=== PATIENT | female | born 1940 | race Caucasian/White ===

== ENCOUNTER 2017-03-02 13:21 | Outpatient (CLI) | payer MEDICARE ==
[2017-03-02 14:44] LABS: #Basophils 0.1 thou/uL (0.0-0.2); #Eosinphils 0.3 thou/uL (0.0-0.7); #Lymphocytes 1.7 thou/uL (1.20-3.40); #Monocytes 0.3 thou/uL (0.11-0.59); #Neutrophils 3.2 thou/uL (1.40-6.50); %Eosinophils 4.8 % (0.0-10.0); %Lymphocytes 30.1 % (21.0-51.0); %Monocytes 6.2 % (0.0-10.0); Mean Platelet Volume 8.1 fL (7.4-10.4); Red Blood Cell (RBC) Count 4.35 mill/uL (4.20-5.40); White Blood Cell (WBC) Count 5.5 thou/uL (4.8-10.8)
[2017-03-02 14:52] LABS: PTT 26.7 SEC (22.9-36.1); Prothrombin Time 14.1 SEC (12.0-14.7)
[2017-03-02 15:07] LABS: Anion Gap 12 mmol/L (10-20); BUN (Urea Nitrogen) 15 mg/dL (9.8-20.1); Calc. Creatinine Clearance 0 mL/min (70-130); Calcium 9.7 mg/dL (7.8-10.44); Carbon Dioxide 34 mmol/L (23-31); Chloride 95 mmol/L (98-107); Estimated GFR-MDRD 51
--- NOTE | 2017-03-02 15:27 | RAD ---
CHEST TWO VIEWS: History: Pre-operative. Comparison: 07-24-14 FINDINGS: Cardiac silhouette and pulmonary vasculature are unremarkable. Mediastinum is midline with post-oper ative changes of the cervical spine partially visualized. There is no confluent airspace consolidati on, pneumothorax, or pleural fluid apparent. Degenerative changes involve the thoracic spine on the lateral view. IMPRESSION: No active cardiopulmonary abnormalities are demonstrated. POS: [facility]
--- NOTE | 2017-03-03 10:01 | EKG ---
Test Reason : PREOP Blood Pressure : / mmHG Vent. Rate : 064 BPM Atrial Rate : 064 BPM P-R Int : 272 ms QRS Dur : 102 ms QT Int : 420 ms P-R-T Axes : 060 -28 036 degrees QTc Int : 433 ms Sinus rhythm with 1st degree A-V block Incomplete right bundle branch block Borderline ECG When compared with ECG of 27-APR-2015 23:44, No significant change was found Confirmed by STEPHANIE HERRERA ([id number]) on 03/03/2017 10:01:12 AM Referred By: TU Confirmed By:STEPHANIE HERRERA
== END 2017-03-02 13:22 | disposition home or self-care (01) ==
LOC: LABBT 13:21
PROVIDERS: ATTEND Orthopaedic Surgery Hand Surgery
DX: Z01.818 Encounter for other preprocedural examination (principal); M19.041 Primary osteoarthritis, right hand; M65.311 Trigger thumb, right thumb
CPT/HCPCS: 71020; 80048; 85025; 85610; 85730; 93005; 93010

== ENCOUNTER 2017-03-03 05:29 | Day surgery (SDC) | payer MEDICARE ==
[2017-03-02 10:59] VITALS: BMI 42.7
[2017-03-03] MEDS ORDERED: Bacitracin Zinc Ointment 30 gm TUBE ONE (06:32)
[2017-03-03] MEDS ORDERED: Sodium Chloride 0.9% 10 ML ONE (06:32)
[2017-03-03] MEDS ORDERED: Bupivacaine PF 0.5% 30 ML VIAL ONE (06:32)
[2017-03-03] MEDS ORDERED: Fentanyl 100 MCG/2 ML VIAL ONE ×2 (06:42→07:25)
[2017-03-03] MEDS ORDERED: Midazolam HCl 2 mg/2 ml Vial ONE (07:01)
[2017-03-03] MEDS ORDERED: Clindamycin/D5W 600 mg/50 ml Premix Bag ONE (07:16)
[2017-03-03] MEDS ORDERED: Lidocaine 2% PF 10 ML AMP (For Epidural Use) ONE (07:46)
[2017-03-03] MEDS ORDERED: Propofol 200 MG/20 ML VIAL ONE (07:46)
[2017-03-03] MEDS ORDERED: Ondansetron HCl/PF 4 MG/2 ML Vial ONE ×2 (07:46→12:27)
[2017-03-03] MEDS ORDERED: Metoclopramide HCl 10 MG/2 ML VIAL ONE (07:46)
[2017-03-03] MEDS ORDERED: Dexamethasone 20 MG/5 ML VIAL ONE (07:46)
[2017-03-03] MEDS ORDERED: diphenhydrAMINE HCl 50 MG/ML 1 ML VIAL ONE (07:46)
[2017-03-03] MEDS ORDERED: Betamet Acet/Betamet Na Ph 30 MG/5 ML VIAL ONE (08:10)
--- NOTE | 2017-03-03 13:08 | RAD ---
THREE VIEWS OF THE RIGHT WRIST/THUMB: FINDINGS/IMPRESSION: Multiple limited intraoperative fluoroscopic views of the right wrist and thumb were submitted for i nterpretation. The patient has ongoing removal of the trapezium. A K-wire spans the first and seco nd metacarpals at the completion of the exam. POS: [facility]
--- NOTE | 2017-03-04 08:32 | OP ---
DATE OF PROCEDURE: 03/03/2017 PREOPERATIVE DIAGNOSES: 1. 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 2. Right thumb trigger digit stage III to IV. POSTOPERATIVE DIAGNOSES: 1. 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 2. Right thumb trigger digit stage III to IV with marked osteophyte formation, subluxation, bone on bone eburnation of more than 70% total joint surface area of metacarpal joint, very tight A1 carlota at the thumb inferolateral to the carpometacarpal joint thumb. PROCEDURE PERFORMED: 1. A1 carlota release thumb/trigger thumb release. 2. Complete trapeziectomy, right thumb. 3. Isabella flexor carpi radialis tendon for tendon transfer. 4. Carpometacarpal joint arthroplasty, ligament replacement, tendon interposition x6, C-arm supervi tucker with metacarpal for the thumb to index finger pinning. COMPLICATIONS: None. TOURNIQUET TIME: 110 minutes. INDICATIONS: Failed conservative treatment with the findings, both preoperative and intraoperative listed above. ANESTHESIA: General LMA technique augmented by 20 mL 0.5% Marcaine total with no epinephrine done b y Beninese anesthesia. DESCRIPTION OF PROCEDURE: After successful general anesthesia, the limb was prepped and draped. C- arm was brought to the field, confirmed the eburnated bone findings. Once this was done, the limb w as exsanguinated, tourniquet inflated to 250 mmHg pressure. The incisions were outlined to include a modified incision at junction dorsal palmar skin along the carpometacarpal joint to the scaph oid base distally. We then also outlined incision for the A1 carlota where we made a longitudinal in cision. First, we did A1 carlota incision, carried to skin and subcutaneous tissue, identified the r adial and ulnar nerve branches by taking from the center field. The A1 carlota was very tight and th ickened, so it was released with [place] blade in midline under direct visualization. A 2 mL Celesto ne was placed and the wound was closed with interrupted 4-0 nylon. Then, we made the curvilinear incision as approach to the carpometacarpal joint and junction to dors al palmar skin. Superficial radial nerve branch was identified and spared, we then lifted at the ju nction of the fascia to the bone, lifted the thenar musculature up and then visualized the entire ca rpometacarpal joint. The incision was made protecting the insertion of the muscles on the bas e of the thumb, then we tagged the joint capsule with a simple 2-0 Vicryl. At this point, we began our sharp dissection of the trapezium to perform a trapeziectomy, identified the flexor carpal radi baylee terminal 5 cm protecting this. We then placed a K-wire into the trapezoid to help lever it, to ok an x-ray to confirm the trapezoid and visualized at the trapezium surface with the base of metaca rpal set this bone with chondral loss and it was over 50% loss of bone with chondral loss, and we ex posed bone at the base of the thumb. All osteophytes removed from the thumb after the trapeziectomy was completed, then the chondral surfaces were shaved with a saw. Then, we removed the C-arm from the field in line with the plain of thumb metacarpal drilled a hole with a 1.2 cm bone age on the la teral portion of the thumb obliquely into the junction of the articular surface and the metacarpal o n the 2nd metacarpal and of the first metacarpal. This hole was then widened to 3.5 mm and curetted until it was progressively larger. It was in perfect position in the sagittal plane and there were no complications from this drilling. We irrigated the area. We then put a heavy 3-0 Prolene sutur e in the very deepest and ulnar portion of the carpometacarpal joint capsule just below the flexor c arpal radialis tendon insertion. We turned our attention now to the forearm where we made two small incisions, one 7 cm from the palm ar wrist flexor crease, another 7 cm from the first incision, carried through the skin and subcutane ous tissue, identified flexor carpi radialis and then harvested the tendon at the musculotendinous j unction, brought this into the wrist. We then removed all muscle, used a Vicryl 2-0 stitch to decre ase the so it could pass through the tunnel and passed it through the tunnel from the index fi nger to the radial edge of the thumb metacarpal. We then made sure it was completely free with no s lack. Once this was done, we brought the C-arm back to the field, pinned the metacarpal, and then w as able to appropriately tension it in 4 different spots to include 2 on the thumb metacarpal, 1 on the extensor insertion to the thumb, and then a final 1 onto the flexor carpi radialis itself. Onc e this was done, and it was weaved deep to the flexor carpi radialis tendon, then we brought 2 Serafin needles onto the field, placed the two 3-0 suture that had been run through the capsule earlier on the other Serafin needle and formed the anchovy portion of the interpositional graft. It was sutured down to the capsule with excellent tension and the primary limb of the flexor carpi radialis tendon was in the center of the base of the thumb in excellent position 1-2 mm over reduced in terms of rel ation to the index finger metacarpal. Tourniquet was deflated. Hemostasis obtained. The joint cap landry closed with 2-0 Vicryl over the ligament replacement portion of the tendon and position graft. Then, hemostasis was obtained. The fascia was then sutured back with 3-0 Monocryl, subcutaneous cl osure with 4-0 Monocryl. The pin was then cut below the skin and the final epidermal closure was ac complished with 4-0 nylon interrupted central pattern. Following injection of 10 mL 0.5% Marcaine g iven along this incision, bulky dressing was applied with a splint and the patient left the operatin g room without evidence of anesthetic or operative complication.
== END 2017-03-03 14:30 | disposition home or self-care (01) ==
LOC: SDC 05:29
PROVIDERS: ATTEND Orthopaedic Surgery Hand Surgery
PROC: 0PTM0ZZ Resection of Right Carpal, Open Approach (ICD-10-PCS; principal; 2017-03-03)
PROC: 0RUS07Z Supplement Right Carpometacarpal Joint with Autologous Tissue Substitute, Open Approach (ICD-10-PCS; 2017-03-03)
PROC: 0LN70ZZ Release Right Hand Tendon, Open Approach (ICD-10-PCS; 2017-03-03)
DX: M19.041 Primary osteoarthritis, right hand (principal); S63.041A Subluxation of carpometacarpal joint of right thumb, initial encounter; M25.741 Osteophyte, right hand; M65.311 Trigger thumb, right thumb; I10 Essential (primary) hypertension; E78.5 Hyperlipidemia, unspecified; E11.9 Type 2 diabetes mellitus without complications; K64.9 Unspecified hemorrhoids; K21.9 Gastro-esophageal reflux disease without esophagitis; E66.01 Morbid (severe) obesity due to excess calories; Z79.82 Long term (current) use of aspirin; Z79.84 Long term (current) use of oral hypoglycemic drugs; Z79.899 Other long term (current) drug therapy; Z68.41 Body mass index [BMI] 40.0-44.9, adult; Z88.2 Allergy status to sulfonamides; Z88.1 Allergy status to other antibiotic agents; Z88.0 Allergy status to penicillin; Z88.8 Allergy status to other drugs, medicaments and biological substances; Z90.710 Acquired absence of both cervix and uterus; Z90.49 Acquired absence of other specified parts of digestive tract; Z98.890 Other specified postprocedural states
CPT/HCPCS: 20924; 25332; 26055; 73140; 76001; 96374; C1776; A4216; J0131; J0702; J1100; J1200; J2001; J2250; J2405; J2704; J2765; J3010; J3490; S0020

== ENCOUNTER 2020-04-11 17:58 | Observation (INO) | payer MEDICARE ==
[2020-04-11] MEDS ORDERED: Aspirin Chewable 81 MG TAB ONE ×2 (18:24→19:34)
[2020-04-11 18:28] LABS: #Lymphocytes 0.7 thou/uL (1.20-3.40); #Monocytes 0.2 thou/uL (0.11-0.59); #Neutrophils 5.3 thou/uL (1.40-6.50); %Basophils 0.1 % (0.0-1.0); %Eosinophils 0.4 % (0.0-10.0); %Lymphocytes 11.5 % (21.0-51.0); %Monocytes 2.6 % (0.0-10.0); %Neutrophils 85.4 % (42.0-75.0); Hemoglobin 14.8 g/dL (12.0-16.0); Mean Corpuscular HGB CONC 33.9 g/dL (32.0-36.0); Mean Corpuscular Hemoglobin 29.8 pg (27.0-31.0); Mean Corpuscular Volume 87.9 fL (78.0-98.0); Mean Platelet Volume 8.5 fL (7.4-10.4); Platelet Count 231 thou/uL (130-400); RBC Distribution Width 12.9 % (11.5-14.5); Red Blood Cell (RBC) Count 4.98 mill/uL (4.20-5.40); White Blood Cell (WBC) Count 6.2 thou/uL (4.8-10.8)
[2020-04-11 18:35] LABS: PTT 27.8 sec (22.9-36.1); Prothrombin Time 13.2 sec (12.0-14.7)
--- NOTE | 2020-04-11 18:37 | CT ---
CT HEAD WITHOUT IV CONTRAST COMPARISON: None HISTORY: Vision changes and tingling in hands. TECHNIQUE: Axial CT imaging at 5 mm intervals from vertex through skull base without contrast FINDINGS: There is decreased attenuation in the periventricular white matter which is nonspecific but likely re flective of mild chronic small vessel ischemic changes. There is mild cerebral volume loss. The ventricular system is normal in size, shape, and position for the degree of sulcal atrophy. There is no evidence of an acute infarction, hemorrhage, mass effect, or midline shift. Skull base has a normal CT appearance. Visualized paranasal sinuses are clear. Osseous structures appear intact. IMPRESSION: 1. No acute intracranial abnormality demonstrated. 2. Chronic small vessel ischemic changes and cerebral volume loss. 3. Above findings discussed with Dr. Shannon in the emergency department on 04/11/2020 at 1833 hours.
[2020-04-11 18:51] LABS: ALT (SGPT) 17 U/L (8-55); AST (SGOT) 22 U/L (5-34); Albumin 4.6 g/dL (3.4-4.8); Alkaline Phosphatase 129 U/L (40-110); Anion Gap 18 mmol/L (10-20); BUN (Urea Nitrogen) 19 mg/dL (9.8-20.1); Bilirubin, Total 0.6 mg/dL (0.2-1.2); CK (CPK) 103 U/L (29-168); Calc. Creatinine Clearance 0 mL/min (70-130); Calcium 10.1 mg/dL (7.8-10.44); Carbon Dioxide 29 mmol/L (23-31); Chloride 94 mmol/L (98-107); Estimated GFR-MDRD 39; Globulin 3.9 g/dL (2.4-3.5); Glucose 294 mg/dL (83-110); Lipase 30 U/L (8-78); Potassium 4.5 mmol/L (3.5-5.1); Protein, Total 8.5 g/dL (6.0-8.3); Sodium 136 mmol/L (136-145)
--- NOTE | 2020-04-11 19:06 | RAD ---
EXAM: CHEST ONE VIEW HISTORY: Tingling in bilateral hands, TIA. Vision changes. COMPARISON: 03/02/2017 FINDINGS: Cardiac silhouette is magnified by projection. The pulmonary vasculature is within normal limits. Mil d elevation right hemidiaphragm is again seen. Mild atelectasis is present at the right lung base. Lung bases otherwise appear clear. Vascular calcifications are seen in the thoracic aorta. Stable pos toperative changes lower cervical spine are partially seen. IMPRESSION: No acute cardiopulmonary process.
[2020-04-11 19:29] LABS: Magnesium 1.6 mg/dL (1.6-2.6)
[2020-04-11 19:47] LABS: Bilirubin Negative (Negative); Blood, Urine Trace (Negative); Glucose, Urine (Dipstick) 250 mg/dL (Negative); Ketone, Urine Negative (Negative); Leukocyte Moderate (Negative); Nitrite Positive (Negative); Protein, Urine (Dipstick) Trace mg/dL (Neg-Trace); Specific Gravity, Urine 1.015 (1.005-1.030); Urobilinogen 0.2 mg/dL (Less than 2)
[2020-04-11 19:49] LABS: Clarity Cloudy (Clear)
[2020-04-11 19:56] LABS: WBC/HPF Greater Than 50 HPF (0-3)
[2020-04-11 19:57] LABS: Bacteria/HPF 4+ HPF (None Seen); Squamous Epithelial None Seen HPF (0-3)
--- NOTE | 2020-04-11 21:55 | PDOC.HHP ---
Hospitalist HPI - History of Present Illness vision loss History of Present Illness: Ms. Carrero is an 79 year old female with a PMHx of hypothyroidism, T2DM diet controlled, HTN, HLD, YANELI, obesity who presents to the ED for transient vision loss. Patient reports that she was sitting watching TV when suddenly for about 30 seconds she lost her vision in both eyes. Patient reports that she had no other symptoms at that time. Denies chest pain, SOB, abdominal pain. Patient states this has never happened before. No history of CVA or heart disease. In the emergency room initial vital signs 164/92, 82, 16, 97.6, 97% on RA. EKG with no ischemic changes, but with RBBB. Troponin 0.021. CXR with no acute f indings. CT brain with no acute findings. Lipase 30, BUN/Cr 19/1.32, H/H 14.8/43.8. Hospitalist ROS - Review of Systems Constitutional: denies: fever, chills, sweats, weakness, malaise, other Eyes: reports: vision change. denies: pain, conjunctivae inflammation, eyelid inflammation, redness, other ENT: denies: ear pain, ear discharge, nose pain, nose discharge, nose congestion , mouth pain, mouth swelling, throat pain, throat swelling, other Respiratory: denies: cough, dry, shortness of breath, hemoptysis, SOB with excertion, pleuritic pain, sputum, wheezing, other Cardiovascular: denies: chest pain, palpitations, orthopnea, paroxysmal noc. dyspnea, edema, light headedness, other Gastrointestinal: denies: nausea, vomiting, abdominal pain, diarrhea, constipation, melena, hematochezia, other Genitourinary: denies: dysuria, frequency, incontinence, hematuria, retention, other Musculoskeletal: denies: neck pain, shoulder pain, arm pain, back pain, hand pain, leg pain, foot pain, other Skin: denies: rash, lesions, florinda, bruising, other Neurological: denies: weakness, numbness, incoordination, change in speech, confusion, seizures, other - Medication Medications: Home medications include: PriLOSEC capsule,delayed release CAPSULE,DELAYED RELEASE (ENTERIC COATED) : Strength - 20 mg : ORAL Patient Dose: 20 mg Oral once a day. losartan-hydrochlorothiazide TABLET : Strength - 100 mg-12.5 mg : ORAL Patient Dose: 1 tab(s) Oral once a day. amLODIPine TABLET : Strength - 2.5 mg : ORAL Patient Dose: unk mg Oral once a day. FLUoxetine CAPSULE : Strength - 10 mg : ORAL Patient Dose: 1 tab(s) Oral once a day. gabapentin TABLET : Strength - 100 mg : ORAL Patient Dose: 100 mg Oral 2 times a day. aspirin oral TABLET : Strength - 81 mg : ORAL Patient Dose: 1 tab(s) Oral once a day. levothyroxine oral TABLET : Strength - 150 mcg : ORAL Patient Dose: 175 mcg Oral once a day. metFORMIN TABLET : Strength - 500 mg : ORAL Patient Dose: 1 tab(s) Oral 2 times a day. ALPRAZolam TABLET : Strength - 0.5 mg : ORAL Patient Dose: unk mg Oral once a day. pravastatin TABLET : Strength - 10 mg : ORAL Patient Dose: 1 tab(s) Oral once a day. Hospitalist History - Past Medical History Other Medical History: Past medical history includes GERDhypothyroidism T2DM HLD HTN YANELI Obesity Anxiety/depression - Past Surgical History Other Surgical History: Past surgical history of Carpel tunnel spinal fusion hand surgery cholecystectomy gastric bypass - Family History Other Family History: Denies family history of stroke, heart disease. - Social History Smoking Status: Never smoker Alcohol: reports: None Drugs: reports: none Living Situation: With Family Activity level: independent ambulation - Exam General Appearance: NAD, awake alert Eye: PERRL, anicteric sclera ENT: normocephalic atraumatic, no oropharyngeal lesions, moist mucosa Neck: supple, symmetric, no JVD, no thyromegaly, no lymphadenopathy, no carotid bruit Heart: RRR, no murmur, no gallops, no rubs, normal peripheral pulses Respiratory: CTAB, no wheezes, no rales, no ronchi, normal chest expansion, no tachypnea, normal percussion Gastrointestinal: soft, non-tender, non-distended, normal bowel sounds, no palpable masses, no hepatomegaly, no splenomegaly, no bruit Extremities: no cyanosis, no clubbing, no edema Skin: normal turgor, no lesions, no rashes Neurological: cranial nerve grossly intact, normal sensation to touch, no weakness, no focal deficits, no new deficit Musculoskeletal: normal tone, normal strength, no muscle wasting Psychiatric: normal affect, normal behavior, A&O x 3 Hospitalist Results - Labs Result Diagrams: 04/11/20 18:18 04/11/20 18:18 Lab results: WBC 6.2 thou/uL (4.8-10.8) 04/11/20 18:18 Hgb 14.8 g/dL (12.0-16.0) 04/11/20 18:18 Hct 43.8 % (36.0-47.0) 04/11/20 18:18 MCV 87.9 fL (78.0-98.0) 04/11/20 18:18 Plt Count 231 thou/uL (130-400) 04/11/20 18:18 Neutrophils % 85.4 % (42.0-75.0) H 04/11/20 18:18 Sodium 136 mmol/L (136-145) 04/11/20 18:18 Potassium 4.5 mmol/L (3.5-5.1) 04/11/20 18:18 Chloride 94 mmol/L (98-107) L 04/11/20 18:18 Carbon Dioxide 29 mmol/L (23-31) 04/11/20 18:18 BUN 19 mg/dL (9.8-20.1) 04/11/20 18:18 Creatinine 1.32 mg/dL (0.6-1.1) H 04/11/20 18:18 Glucose 294 mg/dL (83-110) H 04/11/20 18:18 Calcium 10.1 mg/dL (7.8-10.44) 04/11/20 18:18 Total Bilirubin 0.6 mg/dL (0.2-1.2) 04/11/20 18:18 AST 22 U/L (5-34) 04/11/20 18:18 ALT 17 U/L (8-55) 04/11/20 18:18 Alkaline Phosphatase 129 U/L (40-110) H 04/11/20 18:18 Creatine Kinase 103 U/L (29-168) 04/11/20 18:18 Troponin I 0.021 ng/mL (< 0.028) 04/11/20 18:18 Serum Total Protein 8.5 g/dL (6.0-8.3) H 11/04/20 18:18 Albumin 4.6 g/dL (3.4-4.8) 04/11/20 18:18 Lipase 30 U/L (8-78) 04/11/20 18:18 Urine Ketones Negative mg/dL (Negative) 04/11/20 19:20 Urine Blood Trace (Negative) 04/11/20 19:20 Urine Nitrite Positive (Negative) A 04/11/20 19:20 Ur Leukocyte Esterase Moderate (Negative) H 04/11/20 19:20 Urine RBC 4-6 HPF (0-3) A 04/11/20 19:20 Urine WBC Greater Than 50 HPF (0-3) A 04/11/20 19:20 Ur Squamous Epith Cells None Seen HPF (0-3) 04/11/20 19:20 Urine Bacteria 4+ HPF (None Seen) A 04/11/20 19:20 Hospitalist H&P A/P - Plan Plan: Transient Vision loss 79F with pmhx of HTN, HLD, T2DM, who presents with a 30 second episode of transient bilateral vision loss. CT brain with no acute findings. EKG with RBBB, but no ischemic changes. Neurologically intact. No obvious findings on fundoscopic exam. No headache or temporal pain. Patient does note history of retinal surgery in one eye, but unable to remember which. Suspect episode of brief hypotension/pre-syncope vs TIA. Plan -Orthostatic vital signs -MRI brain, Carotid dopplers -Telemetry monitoring -q4 neuro checks -ASA, statin -Gentle IVF Hypertension Hx of HTN on home amlodipine, losartan-HTZ. Will hold in setting of TIA r/o. Monitor and adjust as needed Hyperlipidemia Continue home pravastatin 10 mg Type 2 DM On home metformin. Will hold and place on ISS. Plan -CC diet -ISS -ACHS glucose checks -Recommend patient follow with PCP for retinopathy screening Hypothyroidism Continue home levothyroxine. Will check TSH. Anxiety/Depression Continue home fluoxetine. Pt denies SI/HI. DVT prophylaxis: SCDs FULL CODE: is MDM
[2020-04-11] MEDS ORDERED: Labetalol HCl 100 MG/20 ML VIAL SLOW IVP PRN (22:15)
[2020-04-11 22:48] LABS: Hemoglobin A1c 7.3 % (4.0-6.0)
[2020-04-11] MEDS ORDERED: Simvastatin 10 MG TAB PO SCH (23:00)
[2020-04-12 02:31] VITALS: BMI 38.3
[2020-04-12 04:16] LABS: Cardiac Risk 2.3 (Less than 4.5)
[2020-04-12] MEDS ORDERED: Levothyroxine 175 MCG TAB PO SCH (06:00)
--- NOTE | 2020-04-12 08:47 | MRI ---
MRI BRAIN WITHOUT CONTRAST: Date: 04/12/2020 INDICATION: TIA. Correlation made to CT scan from yesterday which showed no acute finding. FINDINGS: Cortical volume loss consistent with age. Mild chronic ischemic white matter change. No evidence of restricted diffusion. There is no evidence of acute infarct. There is no mass or edema . The intracranial internal carotid arteries, proximal cerebral arteries and basilar artery all show fl ow-voids. Dural venous sinuses are patent. Paranasal sinuses and mastoids are clear. IMPRESSION: Chronic changes as described. No evidence of acute infarct. POS: [facility]
[2020-04-12] MEDS ORDERED: Aspirin 81 mg Enteric Coated Tablet PO SCH (09:00)
[2020-04-12] MEDS ORDERED: FLUoxetine HCl 10 MG CAP PO SCH (09:00)
[2020-04-12 09:08] VITALS: BP 204/91; TEMP 97.8
--- NOTE | 2020-04-12 10:10 | ULT ---
BILATERAL CAROTID DUPLEX ULTRASOUND: DATE: 04/12/2020 HISTORY: TIA. TECHNIQUE: Patel scale ultrasound with color flow and spectral Doppler imaging of the extracranial carotid artery systems performed bilaterally. FINDINGS: There is plaque formation on both sides. The peak systolic velocity in the right ICA measures 50 cm/second with an end-diastolic velocity of 1 3 cm/second and a systolic ratio of 0.86. The peak systolic velocity in the left ICA measures 39 cm/second with an end-diastolic velocity of 12 cm/second and a systolic ratio of 0.59. Flow in both vertebral arteries remains antegrade. IMPRESSION: No evidence of hemodynamically significant stenosis. POS: [facility]
[2020-04-12] MEDS ORDERED: Amlodipine 5 MG TAB ONE (11:27)
[2020-04-12] MEDS ORDERED: Aspirin Chewable 81 MG TAB ONE (11:27)
[2020-04-12] MEDS ORDERED: Losartan/Hydrochlorothiazide 100 mg/25 mg Tablet PO SCH (11:30)
[2020-04-12] MEDS ORDERED: Amlodipine 5 MG TAB PO SCH (11:30)
--- NOTE | 2020-04-12 14:20 | PDOC.DS.DS ---
Provider - Provider Date of Admission: 04/11/20 20:21 Date of Discharge: 04/12/20 Admitting Provider: Sean Fraire MD Primary Care Physician: ATTILA ALSTON JR, MD Course - Hospital Course Hospital Course: Ms. Carrero is an 79-year-old woman who presented to the hospital after she suffered a transient transient visual loss at home. She was worried that she was having a neurologic event and presented to the hospital for an evaluation. She had a CT of the head done and subsequent MRI of the brain which all came out negative. In addition she also had carotid duplex that did not show any acute findings. Her lipid profile was within normal limits. She did have evidence of a urinary tract infection on her urinalysis. She received Levaquin IV in the emergency room. She has done well during this visit. She remains neurologically intact. We made a decision to discharge her home since her work- up was completely normal. She discharged home in a stable condition. Pertinent Studies: MRI of the brain did not show any acute findings. Carotid duplex also was negative. - Labs Lab Results: 04/11/20 18:18 04/11/20 18:18 Abnormal Lab Results - Last 48 hrs 04/11/20 18:18: Chloride 94 L, Creatinine 1.32 H, Alkaline Phosphatase 129 H, Serum Total Protein 8.5 H, Globulin 3.9 H 04/11/20 18:18: Neutrophils % 85.4 H, Lymphocytes % 11.5 L, Lymphocytes # 0.7 L 04/11/20 18:18: Hemoglobin A1c 7.3 H 04/11/20 18:18: TSH 3rd Generation 0.1900 L 04/11/20 19:20: Urine Glucose (UA) 250 A, Urine Nitrite Positive A, Ur Leukocyte Esterase Moderate H, Urine RBC 4-6 A, Urine WBC Greater Than 50 A, Urine Bacteria 4+ A Microbiology - Entire Visit 04/11/20 20:34 Venous blood - Right Arm Blood Culture - Preliminary Specimen has been received and culture in progress. No Growth to date. 04/11/20 20:34 Venous blood - Left Hand Blood Culture - Preliminary Specimen has been received and culture in progress. No Growth to date. - Physical Exam Vitals: Vital Signs (12 hours) Temp Pulse Resp BP Pulse Ox 04/12/20 13:07 81 11/05/20 08:00 97.8 F 81 19 204/91 H 96 Weight Weight 259 lb 14.8 oz Physical Exam: The patient was seen and examined on the day of discharge. Problem - Discharge Plan Assessment: I saw and evaluated patient on the day of discharge and she is doing very well and is going to be discharged home today. - Problem (1) TIA (transient ischemic attack) Code(s): G45.9 - TRANSIENT CEREBRAL ISCHEMIC ATTACK, UNSPECIFIED Status: Acute Plan: She ruled out for an acute stroke. (2) UTI (urinary tract infection) Status: Acute Qualifiers: Urinary tract infection type: acute cystitis Hematuria presence: with hematuria Qualified Code(s): N30.01 - Acute cystitis with hematuria Plan: She will complete 7 more days of oral Levaquin. Plan - Discharge Medications Prescriptions: Levofloxacin [Levaquin] 500 mg PO DAILY #10 tab Levofloxacin [Levaquin] 500 mg PO DAILY #10 tablet Home Medications: Medication Instructions Recorded Confirmed Type RX: FLUoxetine HCl [Prozac] 10 mg PO DAILY 03/09/16 04/12/20 History RX: Gabapentin 100 mg PO BID 03/09/16 04/12/20 History RX: Levothyroxine Sodium 175 mcg PO DAILY 03/09/16 04/12/20 History RX: Multivitamin [Multivitamins] 1 cap PO DAILY 03/09/16 04/12/20 History RX: Omeprazole Magnesium [Prilosec 20 mg PO DAILY 03/09/16 04/12/20 History OTC] RX: metFORMIN [Glucophage] 500 mg PO BID-WM 03/09/16 04/12/20 History RX: traMADol HCl [Tramadol HCl] 1 - 2 tab PO Q4HR PRN 03/09/16 03/02/17 History RX: ALPRAZolam [ALPRAZolam ODT] 0.25 mg PO DAILY 03/02/17 04/12/20 History RX: Amlodipine Besylate 5 mg PO DAILY 03/02/17 04/12/20 History [amLODIPine Besylate] RX: Aspirin Chewable [Aspirin 81 mg PO DAILY 03/02/17 04/12/20 History Chewable Tablet] RX: Herbal Drugs [Colon Herbal 1 capsule PO DAILY 03/02/17 03/02/17 History Cleanser] RX: Losartan/Hydrochlorothiazide 1 tab PO DAILY 03/02/17 04/12/20 History [Hyzaar] RX: Multivitamin With Minerals 1 tablet PO DAILY 03/02/17 04/12/20 History [Hair, Skin and Nails] Levofloxacin [Levaquin] 500 mg PO DAILY #10 tab 04/12/20 Rx Levofloxacin [Levaquin] 500 mg PO DAILY #10 tablet 04/12/20 Rx Allergies: KATHI Inhibitors Allergy (Verified 08/27/19 06:08) azithromycin [From Zithromax] Allergy (Verified 08/27/19 06:08) celecoxib [From Celebrex] Allergy (Verified 08/27/19 06:08) nifedipine [From Procardia] Allergy (Verified 08/27/19 06:08) Penicillins Allergy (Verified 08/27/19 06:08) Sulfa (Sulfonamide Antibiotics) Allergy (Verified 08/27/19 06:08) - Discharge Instructions Activity:: Activity as Tolerated, No Restrictions Nourishment:: No Restrictions Therapies:: Not Applicable Equipment/Supplies:: Not Applicable IV Therapy:: Not Applicable - Follow up Plan Referrals: Attila Alston Jr, MD [Primary Care Provider] - Disposition: HOME Quality - Care Measures CORE MEASURES:: N/A
[2020-04-12 14:55] LABS: SARS-CoV-2 MS2 Positive; SARS-CoV-2 N Gene Negative; SARS-CoV-2 S Gene Negative; SARS-CoV-2 by NAA Not Detected (NotDetected); SARS-CoV-2 orf1ab Negative
[2020-04-12] MEDS ORDERED: metFORMIN 500 MG TAB PO SCH (17:00)
[2020-04-12] MEDS ORDERED: Simvastatin 10 MG TAB PO SCH (21:00)
[2020-04-12] MEDS ORDERED: Gabapentin 100 MG CAP PO SCH (21:00)
[2020-04-13] MEDS ORDERED: Aspirin Chewable 81 MG TAB PO SCH (09:00)
[2020-04-13] MEDS ORDERED: Multivitamin W/ Minerals 1 TAB PO SCH (09:00)
[2020-04-13] MEDS ORDERED: ALPRAZOLAM 0.25 MG PO SCH (09:00)
[2020-04-13] MEDS ORDERED: Losartan/Hydrochlorothiazide 100 mg/25 mg Tablet PO SCH (09:00)
[2020-04-13] MEDS ORDERED: Non-Formulary Item 1 EACH (Multivitamin [Multivitamins] 1 CAP Capsule) PO SCH (09:00)
[2020-04-13] MEDS ORDERED: Amlodipine 5 MG TAB PO SCH (09:00)
--- NOTE | 2020-04-14 15:08 | EKG ---
Test Reason : Blood Pressure : / mmHG Vent. Rate : 085 BPM Atrial Rate : 086 BPM P-R Int : 000 ms QRS Dur : 160 ms QT Int : 394 ms P-R-T Axes : 000 -43 -18 degrees QTc Int : 468 ms Undetermined rhythm Left axis deviation Right bundle branch block Septal infarct , age undetermined Abnormal ECG Confirmed by STEVEN BENAVIDEZ ([id number]), scientific publications editor CHARISSA GRIMES ([id number]) on 04/14/2020 3:08:11 PM Referred By: Confirmed By:STEVEN BENAVIDEZ
== END 2020-04-12 13:25 | disposition home or self-care (01) ==
LOC: ERS 17:58 → ERHOLD 20:21
PROVIDERS: ADMIT Internal Medicine; ATTEND Hospitalist
DX: G45.9 Transient cerebral ischemic attack, unspecified (principal); N30.01 Acute cystitis with hematuria; E03.9 Hypothyroidism, unspecified; E11.9 Type 2 diabetes mellitus without complications; I10 Essential (primary) hypertension; E78.5 Hyperlipidemia, unspecified; G47.33 Obstructive sleep apnea (adult) (pediatric); F41.9 Anxiety disorder, unspecified; F32.9 Major depressive disorder, single episode, unspecified; K21.9 Gastro-esophageal reflux disease without esophagitis; I45.10 Unspecified right bundle-branch block; E66.9 Obesity, unspecified; Z68.38 Body mass index [BMI] 38.0-38.9, adult; Z79.82 Long term (current) use of aspirin; Z79.84 Long term (current) use of oral hypoglycemic drugs; Z79.899 Other long term (current) drug therapy; Z88.0 Allergy status to penicillin; Z88.1 Allergy status to other antibiotic agents; Z88.2 Allergy status to sulfonamides; Z88.8 Allergy status to other drugs, medicaments and biological substances; Z98.84 Bariatric surgery status; Z20.828 Contact with and (suspected) exposure to other viral communicable diseases
CPT/HCPCS: 70450; 70551; 71045; 80061; 82550; 82962; 83036; 83690; 83735; 84484; 85610; 85730; 87040; 93005; 93880; 96365; 99285; G0378 ×2; U0003; 36415; 36416; 80053; 81003; 81015; 84443; 85025; 87635; J1956

== ENCOUNTER 2020-09-13 16:46 | Emergency (ER) | payer MEDICARE, OTHER ==
[~2020-09-13 16:46] MED LIST: Iopamidol-370 76% 500 ML 1 ML ONE
[2020-09-13] MEDS ORDERED: Morphine 4 MG/ML VIAL ONE (17:32)
[2020-09-13] MEDS ORDERED: Ondansetron PF 4 MG/2 ML Vial ONE (17:32)
[2020-09-13 17:37] LABS: #Eosinphils 0.3 thou/uL (0.0-0.7); #Lymphocytes 1.3 thou/uL (1.20-3.40); #Monocytes 0.5 thou/uL (0.11-0.59); #Neutrophils 4.2 thou/uL (1.40-6.50); %Basophils 0.1 % (0.0-1.0); %Eosinophils 4.8 % (0.0-10.0); %Lymphocytes 21.3 % (21.0-51.0); %Monocytes 7.2 % (0.0-10.0); %Neutrophils 66.6 % (42.0-75.0); Hemoglobin 14.2 g/dL (12.0-16.0); Mean Corpuscular HGB CONC 32.1 g/dL (32.0-36.0); Mean Corpuscular Hemoglobin 27.7 pg (27.0-31.0); Mean Corpuscular Volume 86.3 fL (78.0-98.0); Mean Platelet Volume 8.9 fL (7.4-10.4); Platelet Count 215 thou/uL (130-400); RBC Distribution Width 13.8 % (11.5-14.5); Red Blood Cell (RBC) Count 5.12 mill/uL (4.20-5.40); White Blood Cell (WBC) Count 6.3 thou/uL (4.8-10.8)
[2020-09-13 17:41] LABS: Bilirubin Negative (Negative); Blood, Urine Negative (Negative); Clarity Clear (Clear); Glucose, Urine (Dipstick) Normal (Negative); Ketone, Urine Trace mg/dL (Negative); Leukocyte Negative Leu/uL (Negative); Nitrite Negative (Negative); Protein, Urine (Dipstick) 70 mg/dL (Neg-Trace); RBC/HPF 0-3 HPF (0-3); Specific Gravity, Urine 1.021 (1.002-1.036); Squamous Epithelial None Seen HPF (0-3); WBC/HPF 0-3 HPF (0-3); pH, Urine 5.5 (5.0-9.0)
[2020-09-13 17:42] LABS: Bacteria/HPF 1+ HPF (None Seen)
[2020-09-13 18:08] LABS: ALT (SGPT) 10 U/L (8-55); AST (SGOT) 19 U/L (5-34); Albumin 3.9 g/dL (3.4-4.8); Alkaline Phosphatase 73 U/L (40-110); Anion Gap 17 mmol/L (10-20); BUN (Urea Nitrogen) 16 mg/dL (9.8-20.1); Calc. Creatinine Clearance 0 mL/min (70-130); Carbon Dioxide 29 mmol/L (23-31); Chloride 95 mmol/L (98-107); Globulin 3.2 g/dL (2.4-3.5); Glucose 148 mg/dL (83-110); Potassium 3.2 mmol/L (3.5-5.1); Protein, Total 7.1 g/dL (5.8-8.1); Sodium 138 mmol/L (136-145)
== END 2020-09-13 20:27 | disposition home or self-care (01) ==
LOC: ERS 16:46
DX: R19.7 Diarrhea, unspecified (principal); R19.04 Left lower quadrant abdominal swelling, mass and lump; E03.9 Hypothyroidism, unspecified; E11.9 Type 2 diabetes mellitus without complications; E78.5 Hyperlipidemia, unspecified; I10 Essential (primary) hypertension; G47.30 Sleep apnea, unspecified; K21.9 Gastro-esophageal reflux disease without esophagitis; Z79.899 Other long term (current) drug therapy; Z79.84 Long term (current) use of oral hypoglycemic drugs; Z79.82 Long term (current) use of aspirin
CPT/HCPCS: 51701; 71045; 74177; 80053; 81003; 81015; 85025; 87086; 96374; 96375; 96376; J2270; J2405; Q9967

== ENCOUNTER 2020-09-18 09:41 | Emergency (ER) | payer MEDICARE, OTHER ==
[2020-09-18 13:57] LABS: #Eosinphils 0.3 thou/uL (0.0-0.7); #Lymphocytes 1.5 thou/uL (1.20-3.40); #Monocytes 0.5 thou/uL (0.11-0.59); #Neutrophils 4.5 thou/uL (1.40-6.50); %Basophils 0.3 % (0.0-1.0); %Eosinophils 4.4 % (0.0-10.0); %Lymphocytes 21.7 % (21.0-51.0); %Monocytes 7.7 % (0.0-10.0); %Neutrophils 65.8 % (42.0-75.0); Mean Corpuscular HGB CONC 32.1 g/dL (32.0-36.0); Mean Corpuscular Hemoglobin 27.8 pg (27.0-31.0); Mean Corpuscular Volume 86.6 fL (78.0-98.0); Mean Platelet Volume 8.7 fL (7.4-10.4); Platelet Count 206 thou/uL (130-400); Red Blood Cell (RBC) Count 5.39 mill/uL (4.20-5.40); White Blood Cell (WBC) Count 6.9 thou/uL (4.8-10.8)
[2020-09-18 14:19] LABS: ALT (SGPT) 12 U/L (8-55); AST (SGOT) 28 U/L (5-34); Alkaline Phosphatase 70 U/L (40-110); Anion Gap 18 mmol/L (10-20); BUN (Urea Nitrogen) 14 mg/dL (9.8-20.1); Bilirubin, Total 1.1 mg/dL (0.2-1.2); Calc. Creatinine Clearance 0 mL/min (70-130); Calcium 9.2 mg/dL (7.8-10.44); Carbon Dioxide 28 mmol/L (23-31); Chloride 96 mmol/L (98-107); Globulin 3.5 g/dL (2.4-3.5); Glucose 141 mg/dL (83-110); Lipase 14 U/L (8-78); Potassium 3.5 mmol/L (3.5-5.1); Protein, Total 7.5 g/dL (5.8-8.1); Sodium 138 mmol/L (136-145)
[2020-09-18] MEDS ORDERED: Magnesium 2 GM/50 ML BAG (IN WATER) ONE (15:40)
[2020-09-18] MEDS ORDERED: Ondansetron PF 4 MG/2 ML Vial ONE (15:40)
[2020-09-18 15:46] LABS: Bacteria/HPF None Seen HPF (None Seen); Bilirubin Negative (Negative); Blood, Urine Negative (Negative); Clarity Clear (Clear); Glucose, Urine (Dipstick) Normal (Negative); Ketone, Urine 20 mg/dL (Negative); Leukocyte Negative Leu/uL (Negative); Nitrite Negative (Negative); Protein, Urine (Dipstick) 50 mg/dL (Neg-Trace); RBC/HPF 0-3 HPF (0-3); Specific Gravity, Urine 1.019 (1.002-1.036); Squamous Epithelial None Seen HPF (0-3); WBC/HPF 0-3 HPF (0-3)
== END 2020-09-18 17:00 | disposition home or self-care (01) ==
LOC: ERS 09:41
DX: R10.84 Generalized abdominal pain (principal); R11.0 Nausea; R19.7 Diarrhea, unspecified; R63.0 Anorexia; E03.9 Hypothyroidism, unspecified; E11.9 Type 2 diabetes mellitus without complications; E78.5 Hyperlipidemia, unspecified; I10 Essential (primary) hypertension; G47.30 Sleep apnea, unspecified; K21.9 Gastro-esophageal reflux disease without esophagitis
CPT/HCPCS: 36415; 51701; 80053; 81003; 81015; 83690; 83735; 85025; 93005; 96365; 96375; J2405; J3475

== ENCOUNTER 2020-09-23 04:18 | Inpatient (IN) | payer MEDICARE ==
[2020-09-23 04:50] LABS: #Eosinphils 0.4 thou/uL (0.0-0.7); #Lymphocytes 1.6 thou/uL (1.20-3.40); #Monocytes 0.5 thou/uL (0.11-0.59); #Neutrophils 3.6 thou/uL (1.40-6.50); %Basophils 0.1 % (0.0-1.0); %Eosinophils 6.1 % (0.0-10.0); %Lymphocytes 26.8 % (21.0-51.0); %Monocytes 7.5 % (0.0-10.0); %Neutrophils 59.5 % (42.0-75.0); Hemoglobin 15.2 g/dL (12.0-16.0); Mean Corpuscular HGB CONC 34.2 g/dL (32.0-36.0); Mean Corpuscular Hemoglobin 29.8 pg (27.0-31.0); Mean Platelet Volume 8.6 fL (7.4-10.4); Platelet Count 175 thou/uL (130-400); RBC Distribution Width 14.1 % (11.5-14.5); Red Blood Cell (RBC) Count 5.11 mill/uL (4.20-5.40)
[2020-09-23 05:04] LABS: Bilirubin Negative (Negative); Blood, Urine Negative (Negative); Clarity Clear (Clear); Glucose, Urine (Dipstick) Normal (Negative); Ketone, Urine Negative (Negative); Leukocyte Negative Leu/uL (Negative); Nitrite Negative (Negative); Protein, Urine (Dipstick) Negative (Neg-Trace); Specific Gravity, Urine 1.006 (1.002-1.036); Urobilinogen Normal mg/dL (Less than 2); pH, Urine 6.5 (5.0-9.0)
[2020-09-23 05:13] LABS: ALT (SGPT) 11 U/L (8-55); AST (SGOT) 20 U/L (5-34); Albumin 4.2 g/dL (3.4-4.8); Alkaline Phosphatase 79 U/L (40-110); Anion Gap 13 mmol/L (10-20); BUN (Urea Nitrogen) 19 mg/dL (9.8-20.1); Bilirubin, Total 0.8 mg/dL (0.2-1.2); Calc. Creatinine Clearance 0 mL/min (70-130); Calcium 9.7 mg/dL (7.8-10.44); Carbon Dioxide 33 mmol/L (23-31); Chloride 96 mmol/L (98-107); Globulin 3.1 g/dL (2.4-3.5); Glucose 150 mg/dL (83-110); Potassium 3.4 mmol/L (3.5-5.1); Protein, Total 7.3 g/dL (5.8-8.1); Sodium 139 mmol/L (136-145)
[2020-09-23] MEDS ORDERED: Nitroglycerin 2% Ointment 1 INCH/1 GM Packet ONE (05:32)
[2020-09-23] MEDS ORDERED: cloNIDine 0.1 MG TAB ONE (05:32)
[2020-09-23] MEDS ORDERED: Aspirin 325 MG TAB ONE (05:33)
[2020-09-23 05:37] LABS: CKMB 2.6 ng/mL (0-6.6)
[2020-09-23] MEDS ORDERED: Potassium Chloride 20 MEQ TAB PO SCH ×2 (06:45→12:30)
[2020-09-23] MEDS ORDERED: Sodium Chloride 0.9% 1,000 ML IV SCH (06:45)
[2020-09-23] MEDS ORDERED: Acetaminophen 325 MG TAB PO PRN ×2 (07:18→08:25)
[2020-09-23] MEDS ORDERED: Ondansetron ODT 4 MG TAB PO PRN (07:18)
[2020-09-23] MEDS ORDERED: Ondansetron PF 4 MG/2 ML Vial IVP PRN (07:18)
[2020-09-23 08:22] LABS: Troponin I 0.045 ng/mL (< 0.028)
[2020-09-23] MEDS ORDERED: Guaifenesin DM 100-10/5 ML UDCUP PO PRN (08:25)
[2020-09-23] MEDS ORDERED: Senokot S 8.6-50 MG TAB PO PRN (08:25)
[2020-09-23] MEDS ORDERED: Calcium Carbonate 500 MG ChewTAB PO PRN (08:25)
[2020-09-23 08:30] VITALS: BMI 33.8
[2020-09-23] MEDS ORDERED: Non-Formulary Item 1 EACH (Omeprazole Magnesium [Prilosec Otc] 20 MG Tab) PO SCH (09:00)
[2020-09-23] MEDS ORDERED: Non-Formulary Item 1 EACH (Multivitamin [Multivitamins] 1 CAP Capsule) PO SCH (09:00)
[2020-09-23] MEDS ORDERED: hydrALAZINE 25 MG TAB PO SCH (09:30)
[2020-09-23] MEDS: Sodium Chloride 0.9% 1,000 ML IV SCH ×2 (10:06→21:17)
[2020-09-23] MEDS: Hydrochlorothiazide 25 MG TAB PO SCH (10:06)
[2020-09-23] MEDS: Enoxaparin Sodium 40 MG/0.4 ML SYRINGE SC SCH (10:06)
[2020-09-23] MEDS: Multivit, Therapeutic 1 TAB PO SCH (10:07)
[2020-09-23] MEDS: Gabapentin 100 MG CAP PO SCH ×2 (10:07→21:19)
[2020-09-23] MEDS: FLUoxetine HCl 10 MG CAP PO SCH (10:11)
[2020-09-23] MEDS: Aspirin Chewable 81 MG TAB PO SCH (10:11)
[2020-09-23] MEDS: Levothyroxine 175 MCG TAB PO SCH (10:11)
[2020-09-23] MEDS: Nitroglycerin 2% Ointment 1 INCH/1 GM Packet TOP SCH ×2 (10:49→17:07)
[2020-09-23 11:19] LABS: Troponin I 0.047 ng/mL (< 0.028)
[2020-09-23] MEDS ORDERED: Iopamidol 370 76% 100 ML VIAL ONE (12:47)
[2020-09-23 16:44] LABS: SARS-CoV-2 PCR by NAA Not Detected (NotDetected)
[2020-09-23] MEDS: metFORMIN 500 MG TAB PO SCH (17:11)
[2020-09-23] MEDS: hydrALAZINE 25 MG TAB PO SCH ×2 (17:11→21:19)
[2020-09-23] MEDS ORDERED: Pravastatin Sodium 40 MG TAB PO SCH (21:00)
[2020-09-23] MEDS: Atorvastatin Calcium 10 MG TAB PO SCH (21:19)
[2020-09-24] MEDS: Melatonin 3 MG TAB PO PRN (00:30)
[2020-09-24] MEDS: Nitroglycerin 2% Ointment 1 INCH/1 GM Packet TOP SCH ×4 (02:36→09:15)
[2020-09-24] MEDS: hydrALAZINE 20 MG/ML VIAL SLOW IVP PRN ×2 (05:32→12:17)
[2020-09-24 06:17] LABS: #Eosinphils 0.4 thou/uL (0.0-0.7); #Lymphocytes 1.7 thou/uL (1.20-3.40); #Monocytes 0.4 thou/uL (0.11-0.59); #Neutrophils 3.1 thou/uL (1.40-6.50); %Basophils 0.2 % (0.0-1.0); %Eosinophils 7.7 % (0.0-10.0); %Lymphocytes 30.4 % (21.0-51.0); %Monocytes 7.7 % (0.0-10.0); Hemoglobin 12.4 g/dL (12.0-16.0); Mean Corpuscular HGB CONC 33.6 g/dL (32.0-36.0); Mean Corpuscular Hemoglobin 29.3 pg (27.0-31.0); Mean Corpuscular Volume 87.1 fL (78.0-98.0); Platelet Count 165 thou/uL (130-400); RBC Distribution Width 14.1 % (11.5-14.5); Red Blood Cell (RBC) Count 4.24 mill/uL (4.20-5.40); White Blood Cell (WBC) Count 5.8 thou/uL (4.8-10.8)
[2020-09-24 06:38] LABS: Anion Gap 12 mmol/L (10-20); BUN (Urea Nitrogen) 16 mg/dL (9.8-20.1); Calc. Creatinine Clearance 81 mL/min (70-130); Carbon Dioxide 29 mmol/L (23-31); Chloride 103 mmol/L (98-107); Potassium 3.9 mmol/L (3.5-5.1); Sodium 140 mmol/L (136-145)
[2020-09-24 06:39] LABS: Calcium 8.6 mg/dL (7.8-10.44); Glucose 118 mg/dL (83-110)
[2020-09-24] MEDS: Aspirin Chewable 81 MG TAB PO SCH (09:03)
[2020-09-24] MEDS: Gabapentin 100 MG CAP PO SCH ×2 (09:03→21:18)
[2020-09-24] MEDS: FLUoxetine HCl 10 MG CAP PO SCH (09:03)
[2020-09-24] MEDS: Enoxaparin Sodium 40 MG/0.4 ML SYRINGE SC SCH (09:03)
[2020-09-24] MEDS: metFORMIN 500 MG TAB PO SCH ×2 (09:03→16:28)
[2020-09-24] MEDS: Multivit, Therapeutic 1 TAB PO SCH (09:04)
[2020-09-24] MEDS: hydrALAZINE 25 MG TAB PO SCH ×3 (09:04→21:18)
[2020-09-24] MEDS: Hydrochlorothiazide 25 MG TAB PO SCH (09:04)
[2020-09-24] MEDS: Levothyroxine 175 MCG TAB PO SCH (09:04)
[2020-09-24] MEDS ORDERED: Amlodipine 5 MG TAB PO SCH (09:30)
[2020-09-24] MEDS ORDERED: Fioricet 325/50/40 mg Tablet PO PRN (12:42)
[2020-09-24] MEDS ORDERED: Losartan 25 MG TAB PO SCH (17:15)
[2020-09-24] MEDS: Atorvastatin Calcium 10 MG TAB PO SCH (21:18)
[2020-09-24] MEDS ORDERED: diphenhydrAMINE 25 MG CAP PO SCH (22:30)
[2020-09-25] MEDS: Melatonin 3 MG TAB PO PRN (00:48)
[2020-09-25] MEDS: metFORMIN 500 MG TAB PO SCH (08:06)
[2020-09-25] MEDS: Aspirin Chewable 81 MG TAB PO SCH (08:07)
[2020-09-25] MEDS: Enoxaparin Sodium 40 MG/0.4 ML SYRINGE SC SCH (08:07)
[2020-09-25] MEDS: hydrALAZINE 25 MG TAB PO SCH (08:08)
[2020-09-25] MEDS: FLUoxetine HCl 10 MG CAP PO SCH (08:08)
[2020-09-25] MEDS: Hydrochlorothiazide 25 MG TAB PO SCH (08:08)
[2020-09-25] MEDS: Gabapentin 100 MG CAP PO SCH (08:08)
[2020-09-25] MEDS: Multivit, Therapeutic 1 TAB PO SCH (08:09)
[2020-09-25] MEDS: Levothyroxine 175 MCG TAB PO SCH (08:09)
[2020-09-25] MEDS ORDERED: Losartan 25 MG TAB PO SCH (09:00)
[2020-09-25] MEDS ORDERED: Amlodipine 5 MG TAB PO SCH ×2 (09:00)
[2020-09-25 12:02] VITALS: BP 148/70; TEMP 98.1
== END 2020-09-25 15:11 | disposition home health service (06) | DRG 308 ==
LOC: ERS 04:18 → 2SW 05:55 → OBSVTOIN 09-25 08:57
PROVIDERS: ADMIT Internal Medicine; ATTEND Internal Medicine
DX: R00.1 Bradycardia, unspecified (principal); I50.33 Acute on chronic diastolic (congestive) heart failure; Z20.822 Contact with and (suspected) exposure to COVID-19; I11.0 Hypertensive heart disease with heart failure; E66.9 Obesity, unspecified; E03.9 Hypothyroidism, unspecified; E11.9 Type 2 diabetes mellitus without complications; G47.33 Obstructive sleep apnea (adult) (pediatric); F32.9 Major depressive disorder, single episode, unspecified; F41.9 Anxiety disorder, unspecified; T44.7X5A Adverse effect of beta-adrenoreceptor antagonists, initial encounter; E87.6 Hypokalemia; I45.10 Unspecified right bundle-branch block; R77.8 Other specified abnormalities of plasma proteins; E78.00 Pure hypercholesterolemia, unspecified; Z98.1 Arthrodesis status; Z90.49 Acquired absence of other specified parts of digestive tract; Z98.84 Bariatric surgery status; Z79.82 Long term (current) use of aspirin; Z79.899 Other long term (current) drug therapy; Z88.1 Allergy status to other antibiotic agents; Z88.0 Allergy status to penicillin; Z88.2 Allergy status to sulfonamides; Z88.8 Allergy status to other drugs, medicaments and biological substances; Z68.33 Body mass index [BMI] 33.0-33.9, adult; Z90.710 Acquired absence of both cervix and uterus
CPT/HCPCS: 36415; 36416; 51701; 74177; 76856; 80048; 80053; 81003; 82553; 83735; 83880; 84484; 85025; 86304; 87635; 93005; 93306; 96372; 96374; 96376; G0378; J0360; J1650; Q0163; Q9967; U0003; U0005